=== PATIENT | female | born 1980 | race American Indian/Alaskan Native ===

== ENCOUNTER 2016-09-18 09:52 | Outpatient (CLI) | payer BC ==
--- NOTE | 2016-09-18 11:02 | Ultrasound Report ---
Right mammogram and right breast ultrasound: The patient presents with a palpable area in her right breast. A marker is placed over the area of concern which is located in the superior anterior breast just medial to the nipple. Routine views are obtained. Comparison is made to a prior study in 2012. The patient has focal areas of relatively dense fibroglandular tissue in the medial and another in the lateral portion of the breast but both are superior in location. These are posterior the area of the marker. In the region of the marker no findings of significance are noted. The breast pattern is unchanged from her prior exam. Ultrasound performed in the area of concern at approximately the 1:00 position demonstrates a somewhat inhomogeneous fibroglandular pattern consistent with fibrocystic change. There is a circumscribed mm echo lucency consistent with a cyst. No solid masses. CAD used. Impression: No significant findings. Recommendation: Clinical followup. Any additional evaluation at this time should be based on your concern. Age-appropriate mammogram followup. BI-RADS CATEGORY: 2 = Benign ACR BI-RADS MAMMOGRAPHIC CODES: 0 = Needs additional imaging evaluation; 1 = Negative; 2 = Benign; 3 = Probably benign; 4 = Suspicious; 5 = Malignant; 6 = Known biopsy-proven malignancy COMMENT: 1. Dense breast tissue, i.e., adenosis, fibrocystic changes, etc., may obscure an underlying neoplasm. 2. Approximately 10% of cancers are not detected with mammography. 3. A negative mammography report should not delay biopsy if a clinically suspicious mass is present.
== END 2016-09-18 09:53 | disposition home or self-care (01) ==
LOC: SPVWC 09:52
PROVIDERS: ATTEND Obstetrics & Gynecology
DX: N63 Unspecified lump in breast (principal); N64.59 Other signs and symptoms in breast
CPT/HCPCS: 76642; G0206